=== PATIENT | female | born 1965 | race Caucasian/White ===

== ENCOUNTER → 2016-09-07 | Outpatient (CLI) | payer BC ==
--- NOTE | 2016-09-07 13:38 | CT ---
EXAMINATION TYPE: CT abdomen pelvis w con DATE OF EXAM: 09/07/2016 COMPARISON: 01/22/2014 INDICATION: Pelvic pain DLP: 716.8 mGycm, Automated exposure control for dose reduction was used. CONTRAST: 100 mL of Omnipaque 300. Study performed with Oral Contrast TECHNIQUE: Axial images were obtained from above the diaphragm to the pubic rami in the axial plane a t 5 mm thick sections. Reconstructed images are reviewed on the computer in the coronal plane. FINDINGS: Limited CT sections are obtained the lung bases. The lung bases are clear. CT ABDOMEN: Liver: There is moderate fatty infiltration of liver. Spleen: Normal Pancreas: Normal Adrenal glands: The adrenal glands are normal. Gallbladder: Normal Kidneys: No masses are evident. No hydronephrosis is present. No cysts are present. There is some prominence of the left ureter. Some periureteral inflammatory changes may be present. Aorta: Vascular calcification is within the aorta. Inferior vena cava: Normal. CT PELVIS: Loops of bowel within the abdomen and pelvis are normal. There are loops of bowel which are incom pletely distended or lack oral contrast limiting their evaluation. Appendix: Normal as visualized. Urinary bladder: Decompressed with some limited evaluation. There is a suspicion of possible masslike density posteriorly. Additional workup is recommended. Genitourinary structures: Uterus and adnexal regions appear within normal limits. Uterus may be sligh tly bulky. Fibroids are not excluded. Osseous structures: No suspicious lytic or sclerotic lesions. IMPRESSIONS: 1. There is some prominence of the left ureter with possible. Ureteral inflammatory type change as w ell as possible density within the urinary bladder wall. Additional workup is recommended. Consider C T urogram. Additional evaluation can be performed with pelvic ultrasound with attention to the urinar y bladder.
== END | disposition home or self-care (01) ==
LOC: RADCTMAIN 11:36
PROVIDERS: ATTEND Family Medicine
DX: N28.89 Other specified disorders of kidney and ureter (principal); Z88.2 Allergy status to sulfonamides
CPT/HCPCS: 74177; Q9967

== ENCOUNTER → 2017-03-16 | Outpatient (CLI) | payer BC ==
[2017-03-16 10:22] LABS: Basophils # (A) 0.1 k/uL (0-0.2); Basophils % (A) 1 %; CH 27.7; CHCM 31.8; Eosinophils # (A) 0.8 k/uL (0-0.7); Eosinophils % (A) 12 %; HCT 39.3 % (34.0-46.0); HDW 2.41; HGB 12.4 gm/dL (11.4-16.0); Luc # (Auto) 0.15; Luc % (Auto) 2; Lymphocytes # (A) 1.5 k/uL (1.0-4.8); Lymphocytes % (A) 22 %; MCH 27.5 pg (25.0-35.0); MCHC 31.5 g/dL (31.0-37.0); MCV 87.4 fL (80.0-100.0); Mean Platelet Volume 6.8; Monocytes # (A) 0.4 k/uL (0-1.0); Monocytes % (A) 7 %; Neutrophils # (A) 3.7 k/uL (1.3-7.7); Neutrophils % (A) 56 %; RBC 4.49 m/uL (3.80-5.40); RDW 14.6 % (11.5-15.5); WBC 6.6 k/uL (3.8-10.6); WBC (Perox) 6.76
== END | disposition home or self-care (01) ==
LOC: LABPAT 09:20
PROVIDERS: ATTEND Obstetrics & Gynecology
DX: Z01.818 Encounter for other preprocedural examination (principal); Z01.812 Encounter for preprocedural laboratory examination; N92.0 Excessive and frequent menstruation with regular cycle
CPT/HCPCS: 85025; 93005

== ENCOUNTER → 2017-03-16 | Outpatient (CLI) | payer BC ==
--- NOTE | 2017-03-16 09:23 | MM ---
Reason for exam: additional evaluation requested from prior study. Last mammogram was performed 1 year and 2 months ago. Physical Findings: Nurse did not find any significant physical abnormalities on exam. MG Diagnostic Mammo w CAD RYDER Bilateral CC and MLO view(s) were taken. Prior study comparison: January 27, 2016, left breast MG work up mamm w CAD LT. January 21, 2016, bilateral MG screening mammo w CAD. The breast tissue is heterogeneously dense. This may lower the sensitivity of mammography. Asymmetric breast tissue upper outer left breast is stable. No significant new findings when compared with previous films. These results were verbally communicated with the patient and result sheet given to the patient on 03/16/17. ASSESSMENT: Benign, BI-RAD 2 RECOMMENDATION: Routine screening mammogram of both breasts in 1 year.
== END | disposition home or self-care (01) ==
LOC: RADMAMWWP 08:52
PROVIDERS: ATTEND Obstetrics & Gynecology
DX: R92.8 Other abnormal and inconclusive findings on diagnostic imaging of breast (principal)

== ENCOUNTER 2017-03-28 06:18 | Day surgery (SDC) | payer BC ==
[2017-03-24 11:11] VITALS: BMI 27.9
[~2017-03-28 06:18] MED LIST: DEXAMETHASONE SOD PHOSPHATE 10 MG/ML 1 ML VIAL IV ONE; HYDROmorphone 1 MG/ML 1 ML SYRINGE IVP PRN; LACTATED RINGERS 1,000 ML IV SCH; ONDANSETRON 4 MG/2 ML VIAL IVP ONE; Pre Op ABX Message 1 EACH MISC MISCELLANE ONE
[2017-03-28] MEDS ORDERED: LIDOCAINE 1% 20 ML VIAL (10MG/ML) FOR IV START INTRADERMA ONE (06:43)
[2017-03-28] MEDS ORDERED: MIDAZOLAM 2 MG/2 ML VIAL IV ONE (06:55)
[2017-03-28] MEDS ORDERED: SCOPOLAMINE 1.5MG/72HR PATCH TRANSDERM ONE (06:55)
[2017-03-28] MEDS ORDERED: KETOROLAC 30 MG/ML 1 ML VIAL ONE (07:40)
[2017-03-28] MEDS ORDERED: MIDAZOLAM 2 MG/2 ML VIAL ONE (07:40)
[2017-03-28] MEDS ORDERED: PROPOFOL 10 MG/ML 20 ML VIAL IV ONE (07:40)
[2017-03-28] MEDS ORDERED: LIDOCAINE 1% INJ 10MG/ML (20 ML MDV) ONE (07:40)
[2017-03-28] MEDS ORDERED: fentaNYL (PF) 50 MCG/ML 2 ML AMP ONE (07:40)
[2017-03-28] MEDS ORDERED: diphenhydrAMINE 50 MG/ML 1 ML VIAL IVP PRN (08:01)
[2017-03-28] MEDS ORDERED: IBUPROFEN 600 MG TAB PO PRN (08:01)
[2017-03-28] MEDS ORDERED: METOCLOPRAMIDE 5 MG/ML 2 ML VIAL IVP PRN (08:01)
[2017-03-28] MEDS ORDERED: KETOROLAC 30 MG/ML 1 ML VIAL IVP PRN (08:01)
[2017-03-28] MEDS ORDERED: ONDANSETRON 4 MG/2 ML VIAL IVP PRN (08:01)
[2017-03-28] MEDS ORDERED: SIMETHICONE 80 MG CHEWABLE PO PRN (08:01)
[2017-03-28] MEDS ORDERED: Acetaminophen-Codeine 300-30mg TAB PO PRN ×2 (08:01)
--- NOTE | 2017-03-28 08:09 | P.OP ---
Date of Procedure: 03/28/17 Preoperative Diagnosis: #1. Menorrhagia Postoperative Diagnosis: Same plus #2. Bicornuate uterus #3. Probable submucosal fibroid Procedure(s) Performed: #1. Diagnostic hysteroscopy Anesthesia: other (Gen. by face mask) Surgeon: Jose Wise Estimated Blood Loss (ml): 5 IV fluids (ml): 500 Urine output (ml): 30 Pathology: none sent Condition: stable Disposition: PACU Operative Findings: Preoperative pelvic examination demonstrated a roughly 6 week midplane mobile normal shaped uterus with normal adnexa bilaterally. Intraoperatively, the uterus sounded to 10 cm while the cervix was approximately 3-1/2 cm long. The hysteroscope demonstrated a very clear bicornuate uterus with a long septum of approximately 3-4 cm. There additionally appeared to be a roughly 2-3 cm submucosal fibroid emanating from the posterior lower uterine segment. Given these findings the intention for NovaSure ablation was abandoned. I was unable to remove any significant tissue with either a polyp forceps or a sharp curette. Description of Procedure: The patient was prepped and draped in usual fashion after general anesthesia was administered by the anesthesiologist. A weighted speculum was placed and the bladder was drained of approximately 30 mL of clear daphnie urine. The anterior lip the cervix was grasped with a single-tooth tenaculum and the cervix and uterus sounded to 3-1/2 cm at 10 cm respectively. Serial dilation was carried out to admit the diagnostic hysteroscope which was placed to the cornu. It was unclear as to what the findings were initially as the cavity appeared very narrow. Slow withdrawal of the scope ultimately demonstrated very clear septum to the right of the initial picture with a no other uterine horn clearly apparent on the other side. Further which are all demonstrated a 2 -3 cm intracavitary fibroid. There were no other significant findings. The bilateral tubal ostia were seen at the apex of each cornu. The scope was removed and set aside and the attempt to use a polyp forceps to grasp the fibroid was made. This failed and a sharp curette was utilized to try to remove it which again failed. At this point, the procedure was abandoned. Estimated blood loss for the case was less than 5 mL. There were no complications. All sponge, instrument, and needle counts were correct. The patient tolerated this procedure well and proceeded to the recovery room in stable condition.
[2017-03-28] MEDS ORDERED: LACTATED RINGERS 1,000 ML IV SCH (08:15)
[2017-03-29 22:55] VITALS: BP 103/77; PULSE 70; TEMP 97
[2017-03-29 22:57] VITALS: RESP 18
== END 2017-03-28 09:45 | disposition home or self-care (01) ==
LOC: OR 06:18
PROVIDERS: ATTEND Obstetrics & Gynecology
DX: D25.0 Submucous leiomyoma of uterus (principal); Q51.3 Bicornate uterus; N92.0 Excessive and frequent menstruation with regular cycle; F32.9 Major depressive disorder, single episode, unspecified; I10 Essential (primary) hypertension; Z88.2 Allergy status to sulfonamides; Z79.899 Other long term (current) drug therapy; Z87.891 Personal history of nicotine dependence; Z82.49 Family history of ischemic heart disease and other diseases of the circulatory system
CPT/HCPCS: 58558; 81025; J2250; J1100; J2405; J2001; J3010; J1885; J2704

== ENCOUNTER → 2018-06-18 | Outpatient (CLI) | payer BC ==
--- NOTE | 2018-06-19 09:27 | MM ---
Reason for exam: screening (asymptomatic). Last mammogram was performed 1 year and 3 months ago. Physical Findings: A clinical breast exam by your physician is recommended on an annual basis and results should be correlated with mammographic findings. MG Screening Mammo w CAD Bilateral CC and MLO view(s) were taken. Prior study comparison: March 16, 2017, bilateral MG diagnostic mammo w CAD RYDER. January 27, 2016, left breast MG work up mamm w CAD LT. The breast tissue is heterogeneously dense. This may lower the sensitivity of mammography. Focal asymmetry inner upper right MLO middle third position. This finding is changed when compared with previous exams. ASSESSMENT: Incomplete: need additional imaging evaluation, BI-RAD 0 RECOMMENDATION: Special view mammogram of the right breast. If lesion persists on supplemental views, image directed ultrasound is recommended. [facility] will attempt to contact patient to return for supplemental views and ultrasound if indicated.
== END | disposition home or self-care (01) ==
LOC: RADMAMWWP 15:05
PROVIDERS: ATTEND Obstetrics & Gynecology
DX: Z12.31 Encounter for screening mammogram for malignant neoplasm of breast (principal)
CPT/HCPCS: 77067

== ENCOUNTER → 2018-06-21 | Outpatient (CLI) | payer BC ==
--- NOTE | 2018-06-21 15:02 | MM ---
Reason for exam: additional evaluation requested from abnormal screening. Last mammogram was performed less than 1 month ago. History: Taking estrogen beginning at age 52. Physical Findings: Nurse did not find any significant physical abnormalities on exam. MG Work Up Mamm w CAD RT Spot compression CC, spot compression MLO, and LM view(s) were taken of the right breast. Prior study comparison: June 18, 2018, bilateral MG screening mammo w CAD. March 16, 2017, bilateral MG diagnostic mammo w CAD RYDER. There is no discrete abnormality no cystic or solid lesion seen including area of concern. These results were verbally communicated with the patient and result sheet given to the patient on 06/21/18. ASSESSMENT: Probably benign, BI-RAD 3 RECOMMENDATION: Follow-up diagnostic mammogram of both breasts in 6 months.
== END | disposition home or self-care (01) ==
LOC: RADMAMWWP 14:14
PROVIDERS: ATTEND Obstetrics & Gynecology
DX: R92.8 Other abnormal and inconclusive findings on diagnostic imaging of breast (principal)
CPT/HCPCS: 77065

== ENCOUNTER 2019-02-02 18:52 | Emergency (ER) | payer BC ==
[2019-02-02 19:03] VITALS: TEMP 98.1
[2019-02-02] MEDS ORDERED: ADENOSINE 3 MG/ML 2 ML VIAL IVP STA (19:19)
[2019-02-02] MEDS ORDERED: SODIUM CHLORIDE 0.9% 1,000 ML IV STA (19:22)
--- NOTE | 2019-02-02 19:28 | ED ---
General Adult HPI - General Chief complaint: Arrhythmia/Palpitations Stated complaint: heart racing Time Seen by Provider: 02/02/19 19:06 Source: patient Mode of arrival: ambulatory Limitations: no limitations - History of Present Illness Initial comments: Dictation was produced using [employer] dictation software. please excuse any gramma tical, word or spelling errors. Chief Complaint: 53-year-old feel presents with palpitations. History of Present Illness: 53-year-old female she has past medical history of hypertension presents today with palpitations. Patient reports that her palpitations started approximately 2 PM today. She was getting ready for work when she began spritzing palpitations. She tried to wait at home to see if her symptoms would resolve spontaneously. Just prior to arrival she felt like her symptoms weren't improving promptly her to come to the ER. Patient denies any cardiac history. She has no history of palpitations. Patient denies any illicit drug abuse. She denies any excessive caffeine intake. She has no pain complaints at this time. The ROS documented in this emergency department record has been reviewed and confirmed by me. Those systems with pertinent positive or negative responses have been documented in the HPI. All other systems are other negative and/or noncontributory. PHYSICAL EXAM: General Impression: Alert and oriented x3, mild distress HEENT: Normocephalic atraumatic, extra-ocular movements intact, pupils equal and reactive to light bilaterally, mucous membranes moist. Cardiovascular: Tachycardic Chest: Lungs clear to auscultation bilaterally, no rhonchi, no wheeze, no rales Abdomen: Bowel sounds present, abdomen soft, non-tender, non-distended, no organomegaly Musculoskeletal: Pulses present and equal in all extremities, no peripheral edema Motor: no focal deficits noted Neurological: CN II-XII grossly intact, no focal motor or sensory deficits noted Skin: Intact with no visualized rashes Psych: Normal affect and mood ED course: 53-year-old female presents chief complaint of palpitations for several hours. As upon arrival shows heart rate of 179, blood pressure 136/80, rest of vital signs within except limits. Patient was placed on monitor, given supplemental oxygen and had immediately placed 2 large-bore IVs. Patient placed on monitor showing supra ventricular tachycardia with a fast rate 180. EKG was obtained confirming this. Differently her pads are placed. Patient underwent successful cardioversion with 6 number grams of adenosine. Patient reevaluated with improvement of symptoms. Heart rate reduced to the 90s.Return evaluation obtained. CBC, coag panel, metabolic panel is unremarkable. Troponins elevated 0.128. This is likely secondary to rate dependent ischemia from several hours of tachycardia. TSH is normal. Chest x-ray is nonacute. Patient given intravenous fluids. She is observed in the emergency department for several hours and feels to be at baseline. More history was obtained from patient. She states she did not have excessive intake of caffeine, illicit drugs or energy supplementation. Patient is agreeable for discharge. She will be started on low dose beta tabatha and will follow-up with cardiology referral. there is no clear source of what caused patient to go on supraventricular tachycardia however patient appears stable at this time. EKG interpretation: Ventricular rate 183, SVT, QRS 84, QTC 471. No [place] prolongation, no QTC prolongation, no ST or T-wave changes noted. - Related Data Home Medications Medication Instructions Recorded Confirmed FLUoxetine HCL [PROzac] 20 mg PO DAILY 08/21/14 03/28/17 Previous Rx's Medication Instructions Recorded Metoprolol Tartrate [Lopressor] 12.5 mg PO BID #60 dose 02/02/19 Allergies Allergy/AdvReac Type Severity Reaction Status Date / Time Sulfa (Sulfonamide Allergy Rash/Hives Verified 02/02/19 20:29 Antibiotics) Review of Systems ROS Statement: Those systems with pertinent positive or pertinent negative responses have been documented in the HPI. ROS Other: All systems not noted in ROS Statement are negative. Past Medical History Past Medical History: Hypertension Additional Past Medical History / Comment(s): ovarian cyst, UTI, MIGRAINES.ULCER(WHEN AGE 10 OR 11) History of Any Multi-Drug Resistant Organisms: None Reported Past Surgical History: Bladder Surgery, Section Additional Past Surgical History / Comment(s): D&C x2, COLONOSCOPY Past Anesthesia/Blood Transfusion Reactions: Motion Sickness Past Psychological History: Anxiety Smoking Status: Former smoker Past Alcohol Use History: Daily Past Drug Use History: None Reported - Past Family History Father Family Medical History: Myocardial Infarction ([place]) Mother History Unknown: Yes Family Medical History: No Reported History Additional Family Medical History / Comment(s): PT NOT CLOSE TO MOM, MOM [place]IVES IN [place] NO HX KNOWN General Exam Limitations: no limitations Course Vital Signs 1102/02/19 02/02/19 19:00 19:17 19:20 Temperature 98.1 F Pulse Rate 179 H 100 Pulse Rate [ 186 H [employer] ] Respiratory 18 20 Rate Blood Pressure 136/88 143/106 O2 Sat by Pulse 100 99 Oximetry 02/02/19 02/02/19 20:03 20:27 Temperature Pulse Rate 90 92 Pulse Rate [ [employer] ] Respiratory 20 18 Rate Blood Pressure 147/100 132/97 O2 Sat by Pulse 99 100 Oximetry Medical Decision Making - Lab Data Result diagrams: 02/02/19 19:08 02/02/19 19:08 Lab Results 02/02/19 02/02/19 02/02/19 Range/Units 19:08 19:08 19:08 WBC 8.4 (3.8-10.6) k/uL RBC 5.04 (3.80-5.40) m/uL Hgb 15.2 (11.4-16.0) gm/dL Hct 44.5 (34.0-46.0) % MCV 88.2 (80.0-100.0) fL MCH 30.2 (25.0-35.0) pg MCHC 34.2 (31.0-37.0) g/dL RDW 12.8 (11.5-15.5) % Plt Count 288 (150-450) k/uL Neutrophils % 64 % Lymphocytes % 22 % Monocytes % 6 % Eosinophils % 3 % Basophils % 0 % Neutrophils # 5.4 (1.3-7.7) k/uL Lymphocytes # 1.9 (1.0-4.8) k/uL Monocytes # 0.5 (0-1.0) k/uL Eosinophils # 0.3 (0-0.7) k/uL Basophils # 0.0 (0-0.2) k/uL PT 9.6 (9.0-12.0) sec INR 0.9 (<1.2) APTT 25.0 (22.0-30.0) sec Sodium 138 (137-145) mmol/L Potassium 4.3 (3.5-5.1) mmol/L Chloride 99 (98-107) mmol/L Carbon Dioxide 25 (22-30) mmol/L Anion Gap 14 mmol/L BUN 13 (7-17) mg/dL Creatinine 0.79 (0.52-1.04) mg/dL Est GFR (CKD-EPI)AfAm >90 (>60 ml/min/1.73 sqM) Est GFR (CKD-EPI)NonAf 85 (>60 ml/min/1.73 sqM) Glucose 163 H (74-99) mg/dL Calcium 10.3 H (8.4-10.2) mg/dL Magnesium 1.6 (1.6-2.3) mg/dL Total Bilirubin 0.7 (0.2-1.3) mg/dL AST 61 H (14-36) U/L ALT 60 H (9-52) U/L Alkaline Phosphatase 81 (38-126) U/L Troponin I (0.000-0.034) ng/mL Total Protein 8.1 (6.3-8.2) g/dL Albumin 4.9 (3.5-5.0) g/dL TSH 2.940 (0.465-4.680) mIU/L 02/02/19 Range/Units 19:08 WBC (3.8-10.6) k/uL RBC (3.80-5.40) m/uL Hgb (11.4-16.0) gm/dL Hct (34.0-46.0) % MCV (80.0-100.0) fL MCH (25.0-35.0) pg MCHC (31.0-37.0) g/dL RDW (11.5-15.5) % Plt Count (150-450) k/uL Neutrophils % % Lymphocytes % % Monocytes % % Eosinophils % % Basophils % % Neutrophils # (1.3-7.7) k/uL Lymphocytes # (1.0-4.8) k/uL Monocytes # (0-1.0) k/uL Eosinophils # (0-0.7) k/uL Basophils # (0-0.2) k/uL PT (9.0-12.0) sec INR (<1.2) APTT (22.0-30.0) sec Sodium (137-145) mmol/L Potassium (3.5-5.1) mmol/L Chloride (98-107) mmol/L Carbon Dioxide (22-30) mmol/L Anion Gap mmol/L BUN (7-17) mg/dL Creatinine (0.52-1.04) mg/dL Est GFR (CKD-EPI)AfAm (>60 ml/min/1.73 sqM) Est GFR (CKD-EPI)NonAf (>60 ml/min/1.73 sqM) Glucose (74-99) mg/dL Calcium (8.4-10.2) mg/dL Magnesium (1.6-2.3) mg/dL Total Bilirubin (0.2-1.3) mg/dL AST (14-36) U/L ALT (9-52) U/L Alkaline Phosphatase (38-126) U/L Troponin I 0.128 H* (0.000-0.034) ng/mL Total Protein (6.3-8.2) g/dL Albumin (3.5-5.0) g/dL TSH (0.465-4.680) mIU/L Disposition Clinical Impression: Supraventricular tachycardia Disposition: HOME SELF-CARE Condition: Good Instructions (If sedation given, give patient instructions): Heart Palpitations (ED) Prescriptions: Metoprolol Tartrate [Lopressor] 12.5 mg PO BID #60 dose Is patient prescribed a controlled substance at d/c from ED?: No Referrals: Sony Barreto MD [STAFF PHYSICIAN] - 1-2 days Time of Disposition: 20:33
[2019-02-02 19:35] LABS: Basophils % (A) 0 %; Eosinophils # (A) 0.3 k/uL (0-0.7); Eosinophils % (A) 3 %; HCT 44.5 % (34.0-46.0); HGB 15.2 gm/dL (11.4-16.0); Lymphocytes # (A) 1.9 k/uL (1.0-4.8); Lymphocytes % (A) 22 %; MCH 30.2 pg (25.0-35.0); MCHC 34.2 g/dL (31.0-37.0); MCV 88.2 fL (80.0-100.0); Mean Platelet Volume 5.9; Monocytes # (A) 0.5 k/uL (0-1.0); Monocytes % (A) 6 %; Neutrophils # (A) 5.4 k/uL (1.3-7.7); Neutrophils % (A) 64 %; Platelet Count 288 k/uL (150-450); RBC 5.04 m/uL (3.80-5.40); RDW 12.8 % (11.5-15.5); WBC 8.4 k/uL (3.8-10.6)
[2019-02-02 19:44] LABS: INR 0.9 (<1.2); Prothrombin Time 9.6 sec (9.0-12.0)
--- NOTE | 2019-02-02 19:45 | XR ---
EXAMINATION TYPE: XR chest 2V DATE OF EXAM: 02/02/2019 COMPARISON: 12/23/2014 HISTORY: Dysrhythmia TECHNIQUE: Frontal and lateral views of the chest are obtained. FINDINGS: Heart and mediastinum are normal. Lungs are clear. Diaphragm is normal. Bony thorax is int act. IMPRESSION: Normal chest. No change.
[2019-02-02 19:55] LABS: ALT 60 U/L (9-52); AST 61 U/L (14-36); African American GFR (CKD) >90 (>60 ml/min/1.73 sqM); Albumin 4.9 g/dL (3.5-5.0); Alkaline Phosphatase 81 U/L (38-126); Anion Gap 14 mmol/L; Blood Urea Nitrogen 13 mg/dL (7-17); Calcium 10.3 mg/dL (8.4-10.2); Carbon Dioxide 25 mmol/L (22-30); Chloride 99 mmol/L (98-107); Glucose 163 mg/dL (74-99); Magnesium 1.6 mg/dL (1.6-2.3); Potassium 4.3 mmol/L (3.5-5.1); Sodium 138 mmol/L (137-145); Total Bilirubin 0.7 mg/dL (0.2-1.3); Total Protein 8.1 g/dL (6.3-8.2)
[2019-02-02] MEDS ORDERED: METOPROLOL SUCCINATE (ER) 25 MG TAB.ER.24H PO STA (20:31)
[2019-02-02 21:16] VITALS: BP 132/97; PULSE 92; RESP 18
== END 2019-02-02 20:48 | disposition home or self-care (01) ==
LOC: EC 18:52
DX: I47.1 Supraventricular tachycardia (principal); R79.89 Other specified abnormal findings of blood chemistry; F41.9 Anxiety disorder, unspecified; Z87.891 Personal history of nicotine dependence; Z88.2 Allergy status to sulfonamides; Z79.899 Other long term (current) drug therapy; Z86.79 Personal history of other diseases of the circulatory system; Z82.49 Family history of ischemic heart disease and other diseases of the circulatory system
CPT/HCPCS: 36415; 93005; 80053; 83735; 84443; 84484; 85025; 85610; 85730; 71046; 99285; 92960; 96360; J0153

== ENCOUNTER 2019-08-13 00:25 | Inpatient (IN) | payer BC ==
[2019-08-13] MEDS ORDERED: SODIUM CHLORIDE 0.9% 500 ML 500 ML IV STA (00:32)
--- NOTE | 2019-08-13 00:57 | ED ---
General Adult HPI - General Stated complaint: mental health Time Seen by Provider: 08/13/19 00:25 Source: patient, police, EMS, RN notes reviewed, old records reviewed - History of Present Illness Initial comments: 53-year-old female presents for evaluation of suicide attempt, overdose. Patient states she took her daughter's lithium as well as drank some alcohol. She states this was a suicide attempt. She is having issues with her at home. She took approximately 2150 mg lithium. She denies any other prescription drug ingestion. She's had several episodes of vomiting. - Related Data Home Medications Medication Instructions Recorded Confirmed FLUoxetine HCL [PROzac] 20 mg PO DAILY 08/21/14 02/02/19 Folic Acid(Unknown Dose) 1 tab PO Q48H 02/02/19 02/02/19 Lisinopril-Hctz 10-12.5 mg 1 tab PO DAILY 02/02/19 02/02/19 [Zestoretic 10-12.5] Magnesium(Unknown Dose) 1 tab PO Q48H 02/02/19 02/02/19 Multivitamin with Iron 1 tab PO DAILY 02/02/19 02/02/19 [Multivitamins with Iron] Simvastatin [Zocor] 40 mg PO Q48H 02/02/19 02/02/19 Turmeric(Unknown Dose) 1 tab PO Q48H 02/02/19 02/02/19 Previous Rx's Medication Instructions Recorded Metoprolol Tartrate [Lopressor] 12.5 mg PO BID #60 dose 02/02/19 Allergies Allergy/AdvReac Type Severity Reaction Status Date / Time Sulfa (Sulfonamide Allergy Rash/Hives Verified 02/02/19 20:29 Antibiotics) Review of Systems ROS Statement: Those systems with pertinent positive or pertinent negative responses have been documented in the HPI. ROS Other: All systems not noted in ROS Statement are negative. Past Medical History Past Medical History: Hypertension Additional Past Medical History / Comment(s): ovarian cyst, UTI, MIGRAINES.ULCER(WHEN AGE 10 OR 11) History of Any Multi-Drug Resistant Organisms: None Reported Past Surgical History: Bladder Surgery, Section Additional Past Surgical History / Comment(s): D&C x2, COLONOSCOPY Past Anesthesia/Blood Transfusion Reactions: Motion Sickness Past Psychological History: Anxiety Smoking Status: Former smoker Past Alcohol Use History: Daily Past Drug Use History: None Reported - Past Family History Father Family Medical History: Myocardial Infarction ([place]) Mother History Unknown: Yes Family Medical History: No Reported History Additional Family Medical History / Comment(s): PT NOT CLOSE TO MOM, MOM LIVES IN [place] NO HX KNOWN General Exam General appearance: alert, in no apparent distress Head exam: Present: atraumatic, normocephalic Eye exam: Present: normal appearance, PERRL ENT exam: Present: mucous membranes dry Neck exam: Present: normal inspection. Absent: tenderness, meningismus Respiratory exam: Present: normal lung sounds bilaterally. Absent: respiratory distress, wheezes Cardiovascular Exam: Present: regular rate, normal rhythm GI/Abdominal exam: Present: soft. Absent: distended, tenderness, guarding Neurological exam: Present: alert Psychiatric exam: Present: depressed, anxious, suicidal ideation Skin exam: Present: warm, dry, intact. Absent: cyanosis, diaphoretic Course Vital Signs 08/13/19 00:58 Temperature 98.6 F Pulse Rate 88 Respiratory 20 Rate Blood Pressure 159/98 O2 Sat by Pulse 97 Oximetry - Reevaluation(s) Reevaluation #1: 08/13/19 02:14 Case discussed with poison control, recommend checking lithium level every 4 hours, recommend IV hydration and monitoring overnight. EKG Findings - EKG Comments: EKG Findings:: Treatment: Normal sinus rhythm, rate of 80, CT interval 186, QRS duration 96, QTC 486, no ST segment elevation, prolonged QT. Medical Decision Making - Medical Decision Making 53 yo female presenting with suicide attempt, overdose on lithium and alcohol intoxication. Patient has normal CBC, normal CMP with the exception of lactic acidosis being 4.2) alcohol of 270. Otherwise laboratory testing is significant for mild elevation in lithium at 1.9. Poison control did recommend IV hydration and serial lithium testing. They recommended admission for observation. Patient is admitted to a monitored bed with serial lithium levels to be drawn every 4 hours. Poison control will follow this patient. She is placed in suicide precautions with psychiatry on consult. Case discussed with Dr. Romero, will accept admission. - Lab Data Result diagrams: 08/13/19 01:11 08/13/19 01:11 Lab Results 08/13/19 08/13/19 08/13/19 Range/Units 01:11 01:11 01:11 WBC 8.3 (3.8-10.6) k/uL RBC 4.90 (3.80-5.40) m/uL Hgb 14.9 (11.4-16.0) gm/dL Hct 44.4 (34.0-46.0) % MCV 90.8 (80.0-100.0) fL MCH 30.5 (25.0-35.0) pg MCHC 33.6 (31.0-37.0) g/dL RDW 12.5 (11.5-15.5) % Plt Count 255 (150-450) k/uL Neutrophils % 52 % Lymphocytes % 33 % Monocytes % 5 % Eosinophils % 6 % Basophils % 1 % Neutrophils # 4.3 (1.3-7.7) k/uL Lymphocytes # 2.8 (1.0-4.8) k/uL Monocytes # 0.4 (0-1.0) k/uL Eosinophils # 0.5 (0-0.7) k/uL Basophils # 0.1 (0-0.2) k/uL PT 9.9 (9.0-12.0) sec INR 0.9 (<1.2) Sodium 138 (137-145) mmol/L Potassium 4.1 (3.5-5.1) mmol/L Chloride 98 (98-107) mmol/L Carbon Dioxide 25 (22-30) mmol/L Anion Gap 15 mmol/L BUN 15 (7-17) mg/dL Creatinine 0.85 (0.52-1.04) mg/dL Est GFR (CKD-EPI)AfAm 90 (>60 ml/min/1.73 sqM) Est GFR (CKD-EPI)NonAf 78 (>60 ml/min/1.73 sqM) Glucose 114 H (74-99) mg/dL Plasma Lactic Acid [place] (0.7-2.0) mmol/L Calcium 9.6 (8.4-10.2) mg/dL Phosphorus 3.1 (2.5-4.5) mg/dL Magnesium 1.6 (1.6-2.3) mg/dL Total Bilirubin 0.5 (0.2-1.3) mg/dL AST 41 H (14-36) U/L ALT 28 (4-34) U/L Alkaline Phosphatase 73 (38-126) U/L Total Protein 7.9 (6.3-8.2) g/dL Albumin 5.0 (3.5-5.0) g/dL Salicylates <1.0 mg/dL Acetaminophen <10.0 ug/mL [place] 1.9 H* mmol/L Serum Alcohol 270 H* mg/dL 08/13/19 Range/Units 01:11 WBC (3.8-10.6) k/uL RBC (3.80-5.40) m/uL Hgb (11.4-16.0) gm/dL Hct (34.0-46.0) % MCV (80.0-100.0) fL MCH (25.0-35.0) pg MCHC (31.0-37.0) g/dL RDW (11.5-15.5) % Plt Count (150-450) k/uL Neutrophils % % Lymphocytes % % Monocytes % % Eosinophils % % Basophils % % Neutrophils # (1.3-7.7) k/uL Lymphocytes # (1.0-4.8) k/uL Monocytes # (0-1.0) k/uL Eosinophils # (0-0.7) k/uL Basophils # (0-0.2) k/uL PT (9.0-12.0) sec INR (<1.2) Sodium (137-145) mmol/L Potassium (3.5-5.1) mmol/L Chloride (98-107) mmol/L Carbon Dioxide (22-30) mmol/L Anion Gap mmol/L BUN (7-17) mg/dL Creatinine (0.52-1.04) mg/dL Est GFR (CKD-EPI)AfAm (>60 ml/min/1.73 sqM) Est GFR (CKD-EPI)NonAf (>60 ml/min/1.73 sqM) Glucose (74-99) mg/dL Plasma Lactic Acid [place] 4.2 H* (0.7-2.0) mmol/L Calcium (8.4-10.2) mg/dL Phosphorus (2.5-4.5) mg/dL Magnesium (1.6-2.3) mg/dL Total Bilirubin (0.2-1.3) mg/dL AST (14-36) U/L ALT (4-34) U/L Alkaline Phosphatase (38-126) U/L Total Protein (6.3-8.2) g/dL Albumin (3.5-5.0) g/dL Salicylates mg/dL Acetaminophen ug/mL [place] mmol/L Serum Alcohol mg/dL Critical Care Time Critical Care Time: Yes Total Critical Care Time: 35 Disposition Clinical Impression: Depression, Attempted suicide, Alcohol intoxication, [place] overdose Disposition: ADMITTED IP TO THIS [facility] Condition: Serious Is patient prescribed a controlled substance at d/c from ED?: No Referrals: Leti Romero DO [Primary Care Provider] - 1-2 days Decision to Admit Reason: Admit from EC Decision Date: 08/13/19 Decision Time: 02:19
[2019-08-13 01:28] LABS: Basophils # (A) 0.1 k/uL (0-0.2); Basophils % (A) 1 %; Eosinophils # (A) 0.5 k/uL (0-0.7); Eosinophils % (A) 6 %; HCT 44.4 % (34.0-46.0); HGB 14.9 gm/dL (11.4-16.0); Lymphocytes # (A) 2.8 k/uL (1.0-4.8); Lymphocytes % (A) 33 %; MCH 30.5 pg (25.0-35.0); MCHC 33.6 g/dL (31.0-37.0); MCV 90.8 fL (80.0-100.0); Mean Platelet Volume 6.6; Monocytes # (A) 0.4 k/uL (0-1.0); Monocytes % (A) 5 %; Neutrophils # (A) 4.3 k/uL (1.3-7.7); Neutrophils % (A) 52 %; Platelet Count 255 k/uL (150-450); RDW 12.5 % (11.5-15.5); WBC 8.3 k/uL (3.8-10.6)
[2019-08-13 01:35] LABS: ALT 28 U/L (4-34); AST 41 U/L (14-36); Acetaminophen <10.0 ug/mL; African American GFR (CKD) 90 (>60 ml/min/1.73 sqM); Alkaline Phosphatase 73 U/L (38-126); Anion Gap 15 mmol/L; Blood Urea Nitrogen 15 mg/dL (7-17); Calcium 9.6 mg/dL (8.4-10.2); Carbon Dioxide 25 mmol/L (22-30); Chloride 98 mmol/L (98-107); Glucose 114 mg/dL (74-99); Magnesium 1.6 mg/dL (1.6-2.3); Non-African American GFR(CKD) 78 (>60 ml/min/1.73 sqM); Phosphorus 3.1 mg/dL (2.5-4.5); Potassium 4.1 mmol/L (3.5-5.1); Salicylate <1.0 mg/dL; Sodium 138 mmol/L (137-145); Total Bilirubin 0.5 mg/dL (0.2-1.3); Total Protein 7.9 g/dL (6.3-8.2)
[2019-08-13 01:37] LABS: Alcohol 270 mg/dL; Lithium 1.9 mmol/L
[2019-08-13] MEDS ORDERED: SODIUM CHLORIDE 0.9% 1,000 ML IV ONE (01:39)
[2019-08-13] MEDS ORDERED: SODIUM CHLORIDE 0.9% 500 ML 500 ML IV ONE (01:40)
[2019-08-13 01:42] LABS: INR 0.9 (<1.2); Prothrombin Time 9.9 sec (9.0-12.0)
[2019-08-13] MEDS ORDERED: NALOXONE 0.4 MG/ML 1 ML VIAL IV PRN (02:12)
[2019-08-13 02:40] LABS: Appearance,Urine Clear (Clear); Bilirubin,Urine Negative (Negative); Blood,Urine Negative (Negative); Color,Urine Colorless; Glucose,Urine (UA) Negative (Negative); Ketones,Urine Negative (Negative); Leukocyte Esterase,Urine Negative (Negative); Nitrite,Urine Negative (Negative); PH, Urine 6.5 (5.0-8.0); Protein,Urine Negative (Negative); Specific Gravity,Urine 1.003 (1.001-1.035); Urobilinogen,Urine <2.0 mg/dL (<2.0)
[2019-08-13 02:49] LABS: Amphetamine Screen,Urine Not Detected (NotDetected); Barbiturate Screen,Urine Not Detected (NotDetected); Benzodiazepines Screen,Urine Not Detected (NotDetected); Cocaine Screen,Urine Not Detected (NotDetected); Methadone Screen, Urine Not Detected (NotDetected); Opiate Screen,Urine Not Detected (NotDetected); Oxycodone Screen, Urine Not Detected (NotDetected); Phencyclidine Screen,Urine Not Detected (NotDetected); Tricyclic Antidepressant,Urine Not Detected (NotDetected); Urn Cannabinoid Scrn Not Detected (NotDetected)
[2019-08-13 05:53] LABS: Basophils % (A) 1 %; Eosinophils # (A) 0.2 k/uL (0-0.7); Eosinophils % (A) 3 %; HCT 42.1 % (34.0-46.0); HGB 13.6 gm/dL (11.4-16.0); Lymphocytes # (A) 1.4 k/uL (1.0-4.8); Lymphocytes % (A) 22 %; MCH 29.1 pg (25.0-35.0); MCHC 32.3 g/dL (31.0-37.0); MCV 89.9 fL (80.0-100.0); Mean Platelet Volume 6.7; Monocytes # (A) 0.3 k/uL (0-1.0); Monocytes % (A) 5 %; Neutrophils # (A) 4.5 k/uL (1.3-7.7); Neutrophils % (A) 68 %; Platelet Count 227 k/uL (150-450); RBC 4.68 m/uL (3.80-5.40); RDW 12.4 % (11.5-15.5); WBC 6.6 k/uL (3.8-10.6)
[2019-08-13 06:03] LABS: ALT 26 U/L (4-34); AST 38 U/L (14-36); African American GFR (CKD) >90 (>60 ml/min/1.73 sqM); Albumin 4.3 g/dL (3.5-5.0); Alkaline Phosphatase 58 U/L (38-126); Anion Gap 10 mmol/L; Blood Urea Nitrogen 14 mg/dL (7-17); Calcium 9.2 mg/dL (8.4-10.2); Carbon Dioxide 27 mmol/L (22-30); Chloride 105 mmol/L (98-107); Glucose 92 mg/dL (74-99); Magnesium 1.6 mg/dL (1.6-2.3); Non-African American GFR(CKD) 84 (>60 ml/min/1.73 sqM); Sodium 142 mmol/L (137-145); Total Bilirubin 0.4 mg/dL (0.2-1.3)
[2019-08-13] MEDS: SODIUM CHLORIDE 0.9% 1,000 ML IV SCH ×2 (10:39→15:20)
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
[2019-08-14] MEDS: SODIUM CHLORIDE 0.9% 1,000 ML IV SCH ×2 (05:03→05:52)
[2019-08-14] MEDS ORDERED: FLUoxetine HCL 20 MG CAP PO SCH (09:00)
[2019-08-14] MEDS ORDERED: METOPROLOL TARTRATE 12.5 MG TAB PO SCH (09:00)
[2019-08-14] MEDS ORDERED: LISINOPRIL 10 MG TAB PO SCH (09:30)
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
[2019-08-14 11:09] VITALS: BP 149/84; PULSE 65; RESP 20; TEMP 98.7
== END 2019-08-14 16:47 | DRG 918 ==
LOC: EC 00:25 → 3SCARD 02:12
PROVIDERS: ADMIT Family Medicine; ATTEND Family Medicine
DX: T43.592A Poisoning by other antipsychotics and neuroleptics, intentional self-harm, initial encounter (principal); E87.2 Acidosis; I47.1 Supraventricular tachycardia; T51.0X2A Toxic effect of ethanol, intentional self-harm, initial encounter; F32.9 Major depressive disorder, single episode, unspecified; F10.129 Alcohol abuse with intoxication, unspecified; Y90.8 Blood alcohol level of 240 mg/100 ml or more; Z11.59 Encounter for screening for other viral diseases; I10 Essential (primary) hypertension; F41.9 Anxiety disorder, unspecified; R94.31 Abnormal electrocardiogram [ECG] [EKG]; Z79.899 Other long term (current) drug therapy; Z87.440 Personal history of urinary (tract) infections; Z87.42 Personal history of other diseases of the female genital tract; Z86.69 Personal history of other diseases of the nervous system and sense organs; Z98.891 History of uterine scar from previous surgery; Z87.891 Personal history of nicotine dependence; Z88.2 Allergy status to sulfonamides; Y92.009 Unspecified place in unspecified non-institutional (private) residence as the place of occurrence of the external cause; Z82.49 Family history of ischemic heart disease and other diseases of the circulatory system
CPT/HCPCS: 36415; 80053; 80178; 80306; 80320; 80329; 81003; 83520; 83605; 83735; 84100; 85025; 85610; 87635; 96360; 96361; 99291

== ENCOUNTER 2019-08-14 14:24 | Inpatient (IN) | payer BC ==
[2019-08-14] MEDS ORDERED: MAGNESIUM HYDROXIDE 2,400 MG/10 ML CUP PO PRN (17:31)
[2019-08-14] MEDS ORDERED: MAG HYDROX/AL HYDROX/SIMETH 30 ML CUP PO PRN (17:31)
[2019-08-14] MEDS ORDERED: LORazepam 1 MG TAB PO PRN (17:31)
[2019-08-14] MEDS: METOPROLOL TARTRATE 12.5 MG TAB PO SCH (22:02)
[2019-08-15] MEDS: METOPROLOL TARTRATE 12.5 MG TAB PO SCH ×2 (09:23→22:13)
[2019-08-15] MEDS: FLUoxetine HCL 20 MG CAP PO SCH (09:23)
[2019-08-15] MEDS: LISINOPRIL 10 MG TAB PO SCH (09:24)
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
[2019-08-15] MEDS: ACETAMINOPHEN TAB 325 MG TAB PO PRN (22:13)
[2019-08-16] MEDS: amLODIPine 5 MG TAB PO SCH (10:38)
[2019-08-16] MEDS: FLUoxetine HCL 20 MG CAP PO SCH (10:38)
[2019-08-16] MEDS: METOPROLOL TARTRATE 12.5 MG TAB PO SCH ×2 (10:39→21:11)
[2019-08-16] MEDS: LISINOPRIL 10 MG TAB PO SCH (10:39)
--- NOTE | 2019-08-16 14:56 | P.PN ---
Subjective Progress Note Date: 08/16/19 Principal diagnosis: Suicide attempt by overdose of prescription medications, adjustment disorder with disturbance of mood and conduct, persistent depressive disorder, marital discord, rule out major depressive disorder I reviewed the medical record, interviewed the patient and discussed her treatment and treatment plan during team meeting. She denied having suicidal thoughts or wishes. Her distress has improved remarkably since admission particularly since her told her that he plans to find his own apartment. She alleged that she knew that the dose of lithium was not lethal because she accompanies her daughter to her daughter's psychiatric appointments. She is looking forward to returning home. Yesterday, she gave the impression that her had moved out and was living in a motel until he finds an apartment. Unfortunately, he remains at home and is only looking for apartments. Objective - Vital Signs Vital signs: Vital Signs Temp 99.2 F 08/16/19 13:07 Pulse 66 08/16/19 13:07 Resp 20 08/16/19 13:07 BP 144/88 08/16/19 13:07 Pulse Ox 98 08/15/19 09:25 - Exam She presented as a casually groomed 33-year-old female with a mata complexion. She made eye contact and attended the interview. She had no prominent physical abnormalities. She had a blunted facial expression. She had slight psychomotor retardation but no abnormal movements. Her speech was spontaneous with normal rate, rhythm and volume. Her affect was anxious but stable and appropriate. She denied current suicidal ideation and wishes. She denied homicidal ideation. Denied feeling hopeless, helpless or worthless. She expressed ideas reference, paranoid ideation or delusions. Her thinking was concrete but her associations were coherent, logical and goal directed. She denied hallucinations did not appear to responding to internal stimuli. Assessment and Plan Assessment: Her affect is much to improve from admission. She is denying current suicidal ideation or wishes. I remain concerned about her home situation presented to the continued presence of her in the household. Plan: Continue inpatient treatment. Sick precautions. Continue Prozac 40 mg daily. Encourage continued participation in therapeutic groups and activities. emergency worker to speak with prior to discharge. Evaluate clinical status response to treatment daily basis.
[2019-08-16] MEDS: ACETAMINOPHEN TAB 325 MG TAB PO PRN (21:12)
[2019-08-17] MEDS: METOPROLOL TARTRATE 12.5 MG TAB PO SCH ×2 (08:55→21:37)
[2019-08-17] MEDS: LISINOPRIL 10 MG TAB PO SCH (08:56)
[2019-08-17] MEDS: FLUoxetine HCL 20 MG CAP PO SCH (08:57)
[2019-08-17] MEDS: amLODIPine 5 MG TAB PO SCH (08:57)
[2019-08-17] MEDS: ACETAMINOPHEN TAB 325 MG TAB PO PRN ×2 (08:59→21:38)
--- NOTE | 2019-08-17 15:53 | P.PN ---
Progress Note - Text Progress Note Date: 08/17/19 Clinical Problems: Suicide attempt by overdose of prescription medications, major depressive disorder severe without psychotic features Interim history: The medical record and interviewed the patient. Her primary concern is discharge. She accepted my explanation that we are reluctant to discharge her until we are sure to her safety. Although she has thoughts of suicide I remain concerned about the continued presence of her in the home. Although he is agreed to provide an apartment he did not leave the home. She alleged that his temporary presents as "should not be a problem". And if he does not find an apartment and will not move in with his mother then she will leave and live with her [id number]. We discussed treatment options and she declined to start a second medication (Abilify or Seroquel) to augment her antidepressant. Mental status exam: She presented as a casually groomed middle-aged woman with a mata complexion. She cried intermittently during the interview. She made eye contact and attended the interview. She had a depressed facial expression. She had to psychomotor slowing but no abnormal movements. Her speech was spontaneous with normal rate, rhythm and volume. Affect was depressed and minimally reactive. She denied suicidal ideation and wishes. She discussed express feelings of helplessness over her marital relationship but does not feel worthless or hopeless. She denied ideas reference, paranoid ideation or delusions. Her thinking was abstract and associations were coherent and logical. She denied hallucinations and did not appear to be responding to internal stimuli. Assessment: She is currently denying suicidal ideation and wishes but remains depressed and is reluctant to augment her current dose of Prozac with a second generation antipsychotic. Plan: Continue inpatient treatment. Continue safety precautions. Continue discussion of augmentation strategies. Continue Prozac 40 mg daily. farmworker dairy to arrange a family meeting prior to discharge. Evaluate clinical status response to treatment daily basis.
[2019-08-18] MEDS: amLODIPine 5 MG TAB PO SCH (08:57)
[2019-08-18] MEDS: FLUoxetine HCL 20 MG CAP PO SCH (08:57)
[2019-08-18] MEDS: METOPROLOL TARTRATE 12.5 MG TAB PO SCH ×2 (08:58→20:23)
[2019-08-18] MEDS: ACETAMINOPHEN TAB 325 MG TAB PO PRN ×2 (08:58→20:23)
[2019-08-18] MEDS: LISINOPRIL 10 MG TAB PO SCH (08:58)
--- NOTE | 2019-08-18 14:48 | P.PN ---
Progress Note - Text Progress Note Date: 08/18/19 Clinical Problems: Suicide attempt by overdose of prescription medications, major depressive disorder severe without psychotic features Interim history: I reviewd medical record and interviewed the patient. Her primary concern again was discharge. She spoke to her yesterday and he told her that he is found department. He plans to share I apartment with a friend. He is currently away from home on holiday but will move out of the family home as soon as he returns. She denied feeling depressed or having thoughts of or suicide. Her anxieties he has diminished considerably since admission. Mental status exam: She presented as a casually groomed middle-aged woman with a mata complexion. She cried intermittently during the interview. She made eye contact and attended the interview. She had a depressed facial expression. She had no abnormalities of psychomotor activity but no abnormal movements. Her speech was spontaneous with normal rate, rhythm and volume. Affect was blunted but appropriate.. She denied suicidal ideation and wishes. She denied feeling hopeless, helpless or worthless. She denied ideas reference, paranoid ideation or delusions. Her thinking was abstract and associations were coherent and logical. She denied hallucinations and did not appear to be responding to internal stimuli. Assessment: She is She is much less depressed and anxious since her has concrete plans to move out of the house. Plan: Continue inpatient treatment. Continue safety precautions. Continue discussion of augmentation strategies. Continue Prozac 40 mg daily. parks and recreation worker to arrange a family meeting prior to discharge. Evaluate clinical status response to treatment daily basis.
[2019-08-19 07:11] VITALS: BP 140/81; PULSE 56; RESP 16; TEMP 98.7
[2019-08-19] MEDS: amLODIPine 5 MG TAB PO SCH (08:46)
[2019-08-19] MEDS: METOPROLOL TARTRATE 12.5 MG TAB PO SCH (08:46)
[2019-08-19] MEDS: FLUoxetine HCL 20 MG CAP PO SCH (08:46)
[2019-08-19] MEDS: LISINOPRIL 10 MG TAB PO SCH (08:47)
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
== END 2019-08-19 11:55 | disposition home or self-care (01) | DRG 885 ==
LOC: 3MHU 16:50
PROVIDERS: ADMIT Psychiatry & Neurology Psychiatry; ATTEND Psychiatry & Neurology Psychiatry
DX: F32.2 Major depressive disorder, single episode, severe without psychotic features (principal); F43.25 Adjustment disorder with mixed disturbance of emotions and conduct; T43.592A Poisoning by other antipsychotics and neuroleptics, intentional self-harm, initial encounter; Z63.0 Problems in relationship with spouse or partner; Z79.899 Other long term (current) drug therapy; Z88.2 Allergy status to sulfonamides
CPT/HCPCS: 84443

== ENCOUNTER 2023-02-11 12:20 | Emergency (ER) | payer BC ==
[2023-02-11 12:58] VITALS: TEMP 98.3
--- NOTE | 2023-02-11 12:58 | ED ---
General Adult HPI - General Chief complaint: Extremity Problem,Nontraumatic Stated complaint: right foot pain Time Seen by Provider: 02/11/23 12:42 Source: patient, RN notes reviewed Mode of arrival: ambulatory Limitations: no limitations - History of Present Illness Initial comments: 57-year-old female presents to the emergency department with chief complaint of right lateral foot pain 2 days. She reports that she took an aspirin this morning. She does report that it is worse with weightbearing and the pain radiates to the back of her leg. She does not recall any injury. She does state that she was recently placed on estrogen pills by her primary care provider about 2 weeks ago. She is not on any blood thinners. She denies history of DVT. - Related Data Previous Rx's Medication Instructions Recorded Metoprolol Tartrate [Lopressor] 12.5 mg PO BID #60 dose 02/02/19 lisinopriL [Zestril] 30 mg PO DAILY tab 08/14/19 FLUoxetine HCL 40 mg PO DAILY #30 cap 08/19/19 amLODIPine [Norvasc] 5 mg PO DAILY #30 tab 08/19/19 Allergies Allergy/AdvReac Type Severity Reaction Status Date / Time Sulfa (Sulfonamide Allergy Rash/Hives Verified 02/11/23 12:36 Antibiotics) Review of Systems ROS Statement: Those systems with pertinent positive or pertinent negative responses have been documented in the HPI. ROS Other: All systems not noted in ROS Statement are negative. Past Medical History Past Medical History: Hypertension Additional Past Medical History / Comment(s): ovarian cyst, UTI, MIGRAINES.ULCER(WHEN AGE 10 OR 11) History of Any Multi-Drug Resistant Organisms: None Reported Past Surgical History: Bladder Surgery, Section Additional Past Surgical History / Comment(s): D&C x2, COLONOSCOPY, bladder suspension, Past Anesthesia/Blood Transfusion Reactions: Motion Sickness Past Psychological History: Anxiety, Depression Smoking Status: Never smoker Past Alcohol Use History: Daily Past Drug Use History: Cocaine, Marijuana - Past Family History Father Family Medical History: Myocardial Infarction (CT) Mother History Unknown: Yes Family Medical History: No Reported History Additional Family Medical History / Comment(s): PT NOT CLOSE TO MOM, MOM LIVES IN [place] NO HX KNOWN General Exam Limitations: no limitations General appearance: alert, in no apparent distress Head exam: Present: atraumatic, normocephalic, normal inspection Eye exam: Present: normal appearance, PERRL, EOMI. Absent: scleral icterus, conjunctival injection, periorbital swelling ENT exam: Present: normal exam, mucous membranes moist Neck exam: Present: normal inspection. Absent: tenderness, meningismus, lymphadenopathy Respiratory exam: Present: normal lung sounds bilaterally. Absent: respiratory distress, wheezes, rales, rhonchi, stridor Cardiovascular Exam: Present: regular rate, normal rhythm, normal heart sounds. Absent: systolic murmur, diastolic murmur, rubs, gallop, clicks Extremities exam: Present: normal inspection, full ROM, tenderness (Lateral right foot), normal capillary refill, pedal edema (Right-sided), other (DP and PT pulses 2+). Absent: joint swelling, calf tenderness Back exam: Present: normal inspection Neurological exam: Present: alert, oriented X3 Psychiatric exam: Present: normal affect, normal mood Skin exam: Present: warm, dry, intact, normal color. Absent: rash Course Vital Signs 02/11/23 02/11/23 12:33 15:59 Temperature 98.3 F Pulse Rate 88 79 Respiratory 17 18 Rate Blood Pressure 156/95 136/78 O2 Sat by Pulse 99 98 Oximetry Medical Decision Making - Medical Decision Making Was pt. sent in by a medical professional or institution (Dr. PA, NEEDLE GRINDER, urgent care, hospital, or fci...) When possible be specific @ -No Did you speak to anyone other than the patient for history (EMS, parent, family, police, friend...)? What history was obtained from this source @ -No Did you review nursing and triage notes (agree or disagree)? Why? @ -I reviewed and agree with nursing and triage notes Were old charts reviewed (outside hosp., previous admission, EMS record, old EKG, old radiological studies, urgent care reports/EKG's, fci records)? Report findings @ -No old charts were reviewed Differential Diagnosis (chest pain, altered mental status, abdominal pain women, abdominal pain men, vaginal bleeding, weakness, fever, dyspnea, syncope, headache, dizziness, GI bleed, back pain, seizure, CVA, palpatations, mental health, musculoskeletal)? @ -Differential Musculoskeletal Muscular strain, contusion, ligament sprain, fracture, arthritis, septic arthritis, bursitis, cellulitis, muscle spasm, nerve compression, DVT, arterial occlusion, herpes zoster, electrolyte abnormality, tumor.... This is not meant to be in all inclusive list EKG interpreted by me (3pts min.). @ -None X-rays interpreted by me (1pt min.). @ -X-ray right foot shows no evidence of acute fracture CT interpreted by me (1pt min.). @ -None done U/S interpreted by me (1pt. min.). @ -Ultrasound right lower extremity shows no evidence for DVT What testing was considered but not performed or refused? (CT, X-rays, U/S, labs)? Why? @ -None What meds were considered but not given or refused? Why? @ -None Did you discuss the management of the patient with other professionals (professionals i.e. , PA, NEEDLE GRINDER, lab, RT, psych nurse, school social worker, electrotyper apprentice, teacher, disbursing officer, therapeutic case manager)? Give summary @ -No Was smoking cessation discussed for >3mins.? @ -No Was critical care preformed (if so, how long)? @ -No Were there social determinants of health that impacted care today? How? (Homelessness, low income, unemployed, alcoholism, drug addiction, transportation, low edu. Level, literacy, decrease access to med. care, [facility], rehab)? @ -No Was there de-escalation of care discussed even if they declined (Discuss DNR or withdrawal of care, Hospice)? DNR status @ -No What co-morbidities impacted this encounter? (DM, HTN, Smoking, COPD, CAD, Cancer, CVA, ARF, Chemo, Hep., AIDS, mental health diagnosis, sleep apnea, morbid obesity)? @ -None Was patient admitted / discharged? Hospital course, mention meds given and route, prescriptions, significant lab abnormalities, going to OR and other pertinent info. @ -Discharged. Patient presented to the emergency department for chief complaint of right lateral foot pain 2 days. She initially did not recall any prior injuries but on reevaluation patient states that she had injury to her foot about 2 weeks ago but was not evaluated. X-ray was obtained which shows no evidence of acute fracture. Ultrasound of the right lower extremity shows no evidence for DVT. Patient was given Toradol and Tylenol for pain and advised to alternate Tylenol and Motrin for continued pain control at home. Patient will follow up with her PCP.Patient stable at time of discharge. Case discussed with Dr. smith Undiagnosed new problem with uncertain prognosis? @ -No Drug Therapy requiring intensive monitoring for toxicity (Heparin, Nitro, Insulin, Cardizem)? @ -No Were any procedures done? @ -No Diagnosis/symptom? @ -lateral foot pain Acute, or Chronic, or Acute on Chronic? @ -acute Uncomplicated (without systemic symptoms) or Complicated (systemic symptoms)? @ -uncomplicated Side effects of treatment? @ -No Exacerbation, Progression, or Severe Exacerbation? @ -No Poses a threat to life or bodily function? How? (Chest pain, USA, CT, pneumonia, PE, COPD, DKA, ARF, appy, cholecystitis, CVA, Diverticulitis, Homicidal, Suicidal, threat to staff... and all critical care pts) @ -No Disposition Clinical Impression: Right foot pain Disposition: HOME SELF-CARE Condition: Stable Instructions (If sedation given, give patient instructions): Foot Sprain (ED) Additional Instructions: Please alternate tylenol and motrin as needed for pain. Follow up with your primary care provider. Return to the emergency department for new or worsening symptoms as discussed. Is patient prescribed a controlled substance at d/c from ED?: No Referrals: Daryl Romero MD [Primary Care Provider] - 1-2 days
--- NOTE | 2023-02-11 14:06 | XR ---
EXAMINATION TYPE: XR foot complete RT DATE OF EXAM: 02/11/2023 COMPARISON: NONE HISTORY: 57 year-old female right foot pain TECHNIQUE: 3 views FINDINGS: No acute fracture, subluxation, dislocation seen. IMPRESSION: No acute osseous abnormality seen.
[2023-02-11] MEDS ORDERED: KETOROLAC 15 MG/ML 1 ML VIAL IM STA (14:26)
[2023-02-11] MEDS ORDERED: ACETAMINOPHEN TAB 500 MG TAB PO STA (14:26)
--- NOTE | 2023-02-11 14:39 | US ---
EXAMINATION TYPE: US venous doppler duplex LE RT DATE OF EXAM: 02/11/2023 2:14 PM COMPARISON: NONE CLINICAL INDICATION: Female, 57 years old with history of pain; Right foot pain SIDE PERFORMED: right TECHNIQUE: The lower extremity deep venous system is examined utilizing real time linear array sonog andrew with graded compression, doppler sonography and color-flow sonography. VESSELS IMAGED: Common Femoral Vein Deep Femoral Vein Greater Saphenous Vein * Femoral Vein Popliteal Vein Small Saphenous Vein * Proximal Calf Veins (* superficial vessels) Right Leg: The deep venous system of the right lower extremity from the common femoral vein proximal calf veins is patent and compressible with normal waveforms and augmentable flow. IMPRESSION: No evidence of right lower extremity DVT from the common femoral vein to the proximal calf veins.
[2023-02-11 16:08] VITALS: BP 136/78; PULSE 79; RESP 18
== END 2023-02-11 16:00 | disposition home or self-care (01) ==
LOC: EC 12:20
DX: M79.671 Pain in right foot (principal); I10 Essential (primary) hypertension; F12.90 Cannabis use, unspecified, uncomplicated; F14.90 Cocaine use, unspecified, uncomplicated; Z88.2 Allergy status to sulfonamides
CPT/HCPCS: 73630; 93971; 99284; 96372; J1885

== ENCOUNTER → 2023-03-03 | Outpatient (CLI) | payer BC ==
--- NOTE | 2023-03-07 11:48 | MM ---
Reason for Exam: Screening (asymptomatic). Last mammogram was performed 4 year(s) and 9 month(s) ago. Patient History: Menarche at age 11. First Full-Term at age 25. Postmenopausal. Patient has history of breast feeding. Currently using Estrogen, starting at age 52. Risk Values: Shahida 5 year model risk: 1.5%. NCI Lifetime model risk: 8.3%. Prior Study Comparison: 03/16/2017 Bilateral Diagnostic Mammogram, [facility]. 06/18/2018 Bilateral Screening Mammogram, [facility]. 06/21/2018 Right Diagnostic Mammogram, [facility]. Tissue Density: The breast tissue is heterogeneously dense. This may lower the sensitivity of mammography. Findings: Analyzed By CAD. Pattern appears stable. Benign rounded calcifications are within the right breast. No suspicious groups of microcalcifications, spiculated or lobular masses, architectural distortion or other secondary signs of malignancy are mammographically apparent. Overall Assessment: Benign, BI-RAD 2 Management: Screening Mammogram of both breasts in 1 year. A negative mammogram report should not preclude additional follow up of suspicious palpable abnormalities. Patient should continue monthly self breast exam. A clinical breast exam by your physician is recommended on an annual basis and results should be correlated with mammographic findings. Electronically signed and approved by: Young Almazan D.O. Radiologis
== END | disposition home or self-care (01) ==
LOC: RADMAMWWP 16:00
PROVIDERS: ATTEND Obstetrics & Gynecology
DX: Z12.31 Encounter for screening mammogram for malignant neoplasm of breast (principal); Z78.0 Asymptomatic menopausal state
CPT/HCPCS: 77067

== ENCOUNTER → 2023-06-01 | Outpatient (CLI) | payer BC ==
--- NOTE | 2023-06-01 08:12 | US ---
EXAMINATION TYPE: US liver DATE OF EXAM: 06/01/2023 COMPARISON: CT CLINICAL INDICATION: Female, 57 years old with history of R74.01 ELEVATION OF LEVELS OF LIVER TRANSAM INASE L; Elevated LFT's TECHNIQUE: Multiple sonographic images of the right upper quadrant are obtained. FINDINGS: EXAM MEASUREMENTS: Liver Length: 17.3 cm Gallbladder Wall: 0.2 cm CBD: 0.3 cm Right Kidney: 11.5 x 4.8 x 4.5 cm MESS ATTENDANT NOTES: Pancreas: wnl Liver: Heterogeneous, difficult to penetrate Gallbladder: Lumen clear, somewhat contracted- pt states she is NPO Evidence for sonographic Hung's sign: No CBD: wnl Right Kidney: wnl IMPRESSION: Hepatic steatosis.
[2023-06-01 10:57] LABS: Basophils # (A) 0.04 X 10*3/uL (0.00-0.10); Basophils % (A) 0.9 %; Eosinophils # (A) 0.32 X 10*3/uL (0.04-0.35); Eosinophils % (A) 6.9 %; HCT 42.5 % (37.2-46.3); HGB 14.5 g/dL (12.0-15.0); Lymphocytes # (A) 1.45 X 10*3/uL (0.90-5.00); MCH 31.3 pg (27.0-32.0); MCHC 34.1 g/dL (32.0-37.0); MCV 91.6 FL (80.0-97.0); Mean Platelet Volume 9.9 FL (9.5-12.2); Monocytes # (A) 0.46 X 10*3/uL (0.20-1.00); Monocytes % (A) 9.9 %; NRBC Per 100 WBC 0 X 10*3/uL (0.00-0.01); Neutrophils # (A) 2.37 X 10*3/uL (1.80-7.70); Neutrophils % (A) 50.7 %; Platelet Count 217 X 10*3/uL (140-440); RBC 4.64 X 10*6/uL (4.10-5.20); RDW 13.3 % (11.5-14.5); WBC 4.67 X 10*3/uL (4.50-10.00)
[2023-06-01 11:17] LABS: ALT 78 U/L (8-44); AST 58 U/L (13-35); Albumin 4.5 g/dL (3.8-4.9); Albumin/Globulin Ratio 1.73 Ratio (1.60-3.17); Alkaline Phosphatase 72 U/L (41-126); BUN/Creat Ratio 15.78 Ratio (12.00-20.00); Blood Urea Nitrogen 14.2 mg/dL (9.0-27.0); Calcium 9.9 mg/dL (8.7-10.3); Carbon Dioxide 26.6 mmol/L (21.6-31.8); Chloride 99 mmol/L (96-109); Globulin 2.6 g/dL (1.6-3.3); Glucose 134 mg/dL (70-110); Iron 88 UG/DL (50-170); Potassium 3.6 mmol/L (3.5-5.5); Sodium 140 mmol/L (135-145); Total Bilirubin 0.7 mg/dL (0.3-1.2); Total Iron Binding Capacity 386 UG/DL (228-460); Total Protein 7.1 g/dL (6.2-8.2)
[2023-06-01 11:41] LABS: Ceruloplasmin 30.9 mg/dL (20.0-60.0)
[2023-06-01 11:42] LABS: Hepatitis B Surface Antigen Nonreactive; Hepatitis C IgG Antibody Nonreactive
[2023-06-01 15:39] LABS: Albumin 4.5 g/dL (3.8-4.9); Protein, Total 7.4 g/dL (6.2-8.2)
[2023-06-02 21:04] LABS: Gamma Globulin 0.86 g/dL (0.70-1.50)
== END | disposition home or self-care (01) ==
LOC: RADUSWWP 07:15
PROVIDERS: ATTEND Internal Medicine Gastroenterology
DX: K76.0 Fatty (change of) liver, not elsewhere classified (principal); R74.01 Elevation of levels of liver transaminase levels
CPT/HCPCS: 36415; 76705; 80053; 81596; 82103; 82390; 82728; 83516; 83540; 83550; 84165; 85025; 86038; 86039; 86803; 87340

== ENCOUNTER → 2023-12-15 | Outpatient (CLI) | payer BC ==
[2023-12-15 20:10] LABS: Basophils # (A) 0.04 X 10*3/uL (0.00-0.10); Basophils % (A) 0.8 %; Eosinophils # (A) 0.33 X 10*3/uL (0.04-0.35); Eosinophils % (A) 6.5 %; HCT 42.4 % (37.2-46.3); HGB 14.3 g/dL (12.0-15.0); Lymphocytes # (A) 1.35 X 10*3/uL (0.90-5.00); Lymphocytes % (A) 26.4 %; MCH 31.4 pg (27.0-32.0); MCHC 33.7 g/dL (32.0-37.0); Mean Platelet Volume 9.4 FL (9.5-12.2); Monocytes # (A) 0.44 X 10*3/uL (0.20-1.00); Monocytes % (A) 8.6 %; NRBC Per 100 WBC 0 X 10*3/uL (0.00-0.01); Neutrophils # (A) 2.93 X 10*3/uL (1.80-7.70); Neutrophils % (A) 57.3 %; Platelet Count 199 X 10*3/uL (140-440); RBC 4.56 X 10*6/uL (4.10-5.20); RDW 12.1 % (11.5-14.5); WBC 5.11 X 10*3/uL (4.50-10.00)
[2023-12-15 20:14] LABS: ALT 55 U/L (8-44); AST 64 U/L (13-35); Albumin 4.6 g/dL (3.8-4.9); Albumin/Globulin Ratio 1.77 Ratio (1.60-3.17); Alkaline Phosphatase 74 U/L (41-126); BUN/Creat Ratio 12.38 Ratio (12.00-20.00); Blood Urea Nitrogen 9.9 mg/dL (9.0-27.0); Calcium 9.9 mg/dL (8.7-10.3); Carbon Dioxide 24.6 mmol/L (21.6-31.8); Chloride 103 mmol/L (96-109); Globulin 2.6 g/dL (1.6-3.3); Glucose 87 mg/dL (70-110); Potassium 4.1 mmol/L (3.5-5.5); Sodium 141 mmol/L (135-145); Total Protein 7.2 g/dL (6.2-8.2)
== END | disposition home or self-care (01) ==
LOC: LABWHC1 16:05
PROVIDERS: ATTEND Internal Medicine Gastroenterology
DX: K70.0 Alcoholic fatty liver
CPT/HCPCS: 36415; 80053; 85025

== ENCOUNTER → 2024-06-10 | Outpatient (CLI) | payer BC ==
[2024-06-10 20:47] LABS: Basophils # (A) 0.07 X 10*3/uL (0.00-0.10); Basophils % (A) 1.2 %; Eosinophils # (A) 0.35 X 10*3/uL (0.04-0.35); Eosinophils % (A) 5.8 %; HCT 39.1 % (37.2-46.3); HGB 13.4 g/dL (12.0-15.0); Lymphocytes # (A) 1.36 X 10*3/uL (0.90-5.00); Lymphocytes % (A) 22.4 %; MCH 30.5 pg (27.0-32.0); MCHC 34.3 g/dL (32.0-37.0); MCV 89.1 FL (80.0-97.0); Mean Platelet Volume 9.2 FL (9.5-12.2); Monocytes # (A) 0.55 X 10*3/uL (0.20-1.00); Monocytes % (A) 9.1 %; NRBC Per 100 WBC 0 X 10*3/uL (0.00-0.01); Neutrophils # (A) 3.69 X 10*3/uL (1.80-7.70); Neutrophils % (A) 60.8 %; Platelet Count 243 X 10*3/uL (140-440); RBC 4.39 X 10*6/uL (4.10-5.20); RDW 12.2 % (11.5-14.5); WBC 6.06 X 10*3/uL (4.50-10.00)
[2024-06-10 20:59] LABS: ALT 65 U/L (8-44); AST 62 U/L (13-35); Albumin 4.9 g/dL (3.8-4.9); Albumin/Globulin Ratio 1.88 Ratio (1.60-3.17); Alkaline Phosphatase 66 U/L (41-126); Blood Urea Nitrogen 12.8 mg/dL (9.0-27.0); Calcium 10.4 mg/dL (8.7-10.3); Carbon Dioxide 27.5 mmol/L (21.6-31.8); Chloride 95 mmol/L (96-109); Globulin 2.6 g/dL (1.6-3.3); Glucose 111 mg/dL (70-110); Potassium 4.1 mmol/L (3.5-5.5); Sodium 136 mmol/L (135-145); Total Bilirubin 0.7 mg/dL (0.3-1.2); Total Protein 7.5 g/dL (6.2-8.2)
== END | disposition home or self-care (01) ==
LOC: LABWHC1 15:55
PROVIDERS: ATTEND Internal Medicine Gastroenterology
DX: K70.0 Alcoholic fatty liver (principal)
CPT/HCPCS: 36415; 80053; 85025